=== PATIENT | male | born 1990 | race Caucasian/White ===

== ENCOUNTER 2021-11-18 16:37 | Emergency (ER) | payer OTHER ==
[~2021-11-18] VITALS: Ht 180.3 cm; Wt 90.7 kg
[2021-11-18 20:00] VITALS: BP 131/85
[2021-11-18] MEDS ORDERED: BACITRACIN TOP OINT 1 UD PKG TOP ONE (20:00)
[2021-11-18] MEDS ORDERED: TETANUS-DIPTH-ACEL PERTUSSIS 0.5ML SYR Tdap IM ONE (20:00)
== END 2021-11-18 21:48 | disposition home or self-care (01) ==
LOC: ER 16:37
DX: S93.401A Sprain of unspecified ligament of right ankle, initial encounter (principal); S80.811A Abrasion, right lower leg, initial encounter; W20.8XXA Other cause of strike by thrown, projected or falling object, initial encounter; Y93.89 Activity, other specified; Y92.89 Other specified places as the place of occurrence of the external cause; Y99.0 Civilian activity done for income or pay
CPT/HCPCS: 73590; 73610

== ENCOUNTER 2021-12-05 06:07 | Emergency (ER) | payer OTHER ==
[~2021-12-05] VITALS: Ht 180.3 cm; Wt 90.7 kg
[2021-12-05] MEDS ORDERED: TETANUS-DIPTH-ACEL PERTUSSIS 0.5ML SYR Tdap IM ONE (06:45)
[2021-12-05] MEDS ORDERED: CEPH500C PO (06:48)
[2021-12-05 07:00] VITALS: BP 135/87
== END 2021-12-05 07:13 | disposition home or self-care (01) ==
LOC: ER 06:07
DX: S80.811D Abrasion, right lower leg, subsequent encounter (principal); W18.39XD Other fall on same level, subsequent encounter
CPT/HCPCS: 90471; 90715